=== PATIENT | male | born 1975 | race Caucasian/White ===

== ENCOUNTER 2024-02-08 15:03 | Emergency (ER) | payer BC | END 2024-02-08 16:20 | disposition home or self-care (01) | LOC: LB.ED 15:03 | DX: S80.11XA Contusion of right lower leg, initial encounter (principal); I10 Essential (primary) hypertension; Z79.899 Other long term (current) drug therapy; W11.XXXA Fall on and from ladder, initial encounter | CPT/HCPCS: 73590-RT; 99283 ==